=== PATIENT | female | born 1960 | race Caucasian/White ===

== ENCOUNTER 2023-12-14 12:48 | Outpatient (CLI) | payer MEDICARE, SELFPAY ==
[2023-12-14 13:31] LABS: Iron 97 ug/dL (37-170)
[2023-12-14 13:40] LABS: Percent Iron Saturation 27 % (20-50)
[2023-12-15 11:59] LABS: Ceruloplasmin 30 mg/dL (14-48)
[2023-12-22 12:58] LABS: Actin Antibody (IgG) <20 U (<20)
[2023-12-26 10:58] LABS: Mitochondrial (M2) Ab (IgG) <20.0 U
== END 2023-12-14 12:49 | disposition home or self-care (01) ==
LOC: ANHLAB 12:56
PROVIDERS: PCP Internal Medicine; Visit Provider Nurse Practitioner Family
DX: R79.89 Other specified abnormal findings of blood chemistry (principal); R16.0 Hepatomegaly, not elsewhere classified
CPT/HCPCS: 36415; 82104; 82390; 82728; 83520; 83540; 83550; 86038; 86039; 86364

== ENCOUNTER 2023-12-29 08:31 | Outpatient (CLI) | payer MEDICARE, SELFPAY ==
--- NOTE | ~2023-12-29 | US_ITS ---
Limited Abdominal Sonogram: Real-time sonographic imaging of the right upper quadrant was performed. Clinical History: Hepatomegaly Findings: The liver appears normal with no evidence of mass lesion or bile duct dilatation. Liver me asures 17.5 cm in length. Main portal vein demonstrates normal direction of flow. The gallbladder is well distended, and appears normal with no evidence of gallstone or wall thickening. The common bile duct measures 2 mm. The visualized pancreas, aorta, and IVC are unremarkable. Right kidney measures 10.2 cm in length, without hydronephrosis. Impression: Liver measures 18.2 cm in length. No morphologic abnormality seen otherwise. Reviewed, dictated and finalized at [facility]. Impression: Liver measures 18.2 cm in length. No morphologic abnormality seen otherwise.
== END 2023-12-29 08:32 | disposition home or self-care (01) ==
PROVIDERS: PCP Internal Medicine; Visit Provider Nurse Practitioner Family
DX: R16.0 Hepatomegaly, not elsewhere classified (principal)
CPT/HCPCS: 76705